=== PATIENT | male | born 1965 | race Caucasian/White ===

== ENCOUNTER → 2021-03-06 | Outpatient (CLI) | payer OTHER ==
[~2021-03-06] MED LIST: ASTEPRO205.5 MCG/; BACTRIM DS TAB1 EACH PO; DIPHENHIST50 MG PO; MEDROLDOSEPACK PO; NASONEX17 GM NS; TRIAMCINOLONE 080 G3 TOP
== END ==
LOC: M.CT 08:00
PROVIDERS: ATTEND Family Medicine
DX: Z13.6 Encounter for screening for cardiovascular disorders (principal); E78.5 Hyperlipidemia, unspecified